=== PATIENT | male | born 1950 | race Caucasian/White ===

== ENCOUNTER 2018-08-08 15:04 | Inpatient (IN) | payer BC, OTHER ==
[~2018-08-08] VITALS: Ht 177.8 cm; Wt 105.4 kg
[2018-08-08 15:42] LABS: Mean Corpuscular Hgb Conc. 32.9 g/dL (32.0-36.0)
[2018-08-08] MEDS ORDERED: ASPirin 81 mg TAB PO ONE (15:45)
[2018-08-08 15:48] LABS: Basophils # (auto) 0.1 uL; Basophils % (auto) 1.7 % (0.0-2.0); Eosinophils # (auto) 0.3 uL; Eosinophils % (auto) 3.3 % (0.0-7.0); Hematocrit 49.8 % (41.0-53.0); Hemoglobin 16.4 g/dL (13.5-17.5); Lymphocytes # (auto) 0.5 uL; Lymphocytes % (auto) 6.9 % (10.0-50.0); Mean Corpuscular Hemoglobin 27.9 pg (28.0-32.0); Mean Corpuscular Volume 84.8 fL (80.0-100.0); Monocytes # (auto) 0.5 uL; Monocytes % (auto) 6.5 % (0.0-12.0); Neutrophils # (auto) 6.4 uL; Neutrophils % (auto) 81.6 % (37.0-80.0); Platelet Count (auto) 225 10^3/uL (140-450); Red Blood Cells 5.87 10^6/uL (4.5-5.90); Red Cell Distribution Width 16.9 % (11.8-14.3); White Blood Cell 7.9 10^3/uL (4.4-10.8)
[2018-08-08 16:16] LABS: Albumin 3.8 g/dL (3.4-5.0); Calcium 8.9 mg/dL (8.5-10.1); Potassium 3.9 mmol/L (3.5-5.1)
[2018-08-08 16:21] LABS: Bilirubin, Total 0.3 mg/dL (0.2-1.0); Total Protein 7.3 g/dL (6.4-8.2)
[2018-08-08] MEDS ORDERED: MORPHINE SULF INJ 2 MG/ML SYRINGE 1ML IV PRN ×2 (17:30)
[2018-08-08] MEDS ORDERED: ONDANSETRON HCL 4 MG/2 ML VIAL IV PRN (17:30)
[2018-08-08] MEDS ORDERED: ACETAMINOPHEN 500 MG TAB PO PRN (17:30)
[2018-08-08] MEDS ORDERED: DEXTROSE (50%) 50ML SYRG IV PRN (17:30)
[2018-08-08] MEDS ORDERED: NITROGLYCERIN 0.4 MG SL TAB SL PRN (17:30)
[2018-08-08] MEDS: glipiZIDE 5 MG TAB PO SCH (18:31)
[2018-08-08 19:35] VITALS: BP 179/95
[2018-08-08] MEDS ORDERED: BUSP10TA90 PO (21:58)
[2018-08-08] MEDS ORDERED: RIZA5TAB14 OR (21:58)
[2018-08-08] MEDS ORDERED: VENL37.588 PO (21:58)
[2018-08-08] MEDS ORDERED: HYDR-531 PO (21:58)
[2018-08-08] MEDS ORDERED: NITR0.4S29 SL (21:58)
[2018-08-08] MEDS ORDERED: GLIP-116 PO (21:58)
[2018-08-08] MEDS ORDERED: METF-370 PO (21:58)
[2018-08-08] MEDS ORDERED: GABA300C10 PO (21:58)
[2018-08-08] MEDS ORDERED: FENO1TAB42 PO (21:58)
[2018-08-08] MEDS ORDERED: ASP81EC PO (21:58)
[2018-08-08] MEDS ORDERED: TICA90TA PO (21:58)
[2018-08-08] MEDS ORDERED: BUTA1TAB PO (21:58)
[2018-08-08] MEDS ORDERED: CLON0.1T PO (21:58)
[2018-08-08] MEDS ORDERED: ATO40T PO (21:58)
[2018-08-08] MEDS ORDERED: HYDR-4296 PO (21:58)
[2018-08-08] MEDS ORDERED: OME20T PO (21:58)
[2018-08-08 22:00] VITALS: BP 157/86
[2018-08-08] MEDS: hydrALAZINE HCL 25 MG TAB PO SCH (22:36)
[2018-08-08] MEDS: GABAPENTIN 300 MG CAP PO SCH (22:37)
[2018-08-08] MEDS: ATORVASTATIN 20 MG TAB PO SCH (22:37)
[2018-08-08] MEDS: busPIRone HCL 10 MG TAB PO SCH (22:37)
[2018-08-08] MEDS: METOPROLOL TARTRATE 25 MG TAB PO SCH (22:37)
[2018-08-08] MEDS: InsuLIN REG 1unit/0.01ml Soln (100units/ml) SC SCH (22:38)
[2018-08-08] MEDS: OXcarbazepine 300 MG TAB PO SCH (22:38)
[2018-08-08] MEDS: ACCU-CHEK COMFORT CURVE STRIP VI SCH (22:38)
[2018-08-08] MEDS: TICAGRELOR 90 MG TAB PO SCH (22:54)
[2018-08-08] MEDS ORDERED: TEMAZEPAM 15 MG CAP PO ONE (23:00)
[2018-08-09] MEDS: HYDROcodone-ACET 5/325MG TAB PO PRN ×3 (00:08→22:25)
[2018-08-09] MEDS: LABETALOL HCL 5 MG/ML ML 20ML VIAL IV PRN (00:08)
[2018-08-09 04:54] VITALS: BP 158/68
[2018-08-09] MEDS: busPIRone HCL 10 MG TAB PO SCH ×3 (05:38→21:37)
[2018-08-09] MEDS: OXcarbazepine 300 MG TAB PO SCH ×3 (05:38→21:38)
[2018-08-09] MEDS: glipiZIDE 5 MG TAB PO SCH (05:38)
[2018-08-09] MEDS: GABAPENTIN 300 MG CAP PO SCH ×3 (05:38→21:38)
[2018-08-09] MEDS: ACCU-CHEK COMFORT CURVE STRIP VI SCH ×4 (05:39→21:39)
[2018-08-09] MEDS: InsuLIN REG 1unit/0.01ml Soln (100units/ml) SC SCH ×4 (05:39→21:39)
[2018-08-09] MEDS: amLODIPine BESYLATE 5 MG TAB PO SCH (07:13)
[2018-08-09 07:43] LABS: Basophils # (auto) 0.1 uL; Basophils % (auto) 0.8 % (0.0-2.0); Eosinophils # (auto) 0.3 uL; Eosinophils % (auto) 4.5 % (0.0-7.0); Hematocrit 47.8 % (41.0-53.0); Hemoglobin 15.6 g/dL (13.5-17.5); Lymphocytes # (auto) 1.2 uL; Lymphocytes % (auto) 16.2 % (10.0-50.0); Mean Corpuscular Hemoglobin 27.6 pg (28.0-32.0); Mean Corpuscular Hgb Conc. 32.7 g/dL (32.0-36.0); Mean Corpuscular Volume 84.4 fL (80.0-100.0); Monocytes # (auto) 0.6 uL; Monocytes % (auto) 8.8 % (0.0-12.0); Neutrophils % (auto) 69.7 % (37.0-80.0); Platelet Count (auto) 203 10^3/uL (140-450); Red Blood Cells 5.66 10^6/uL (4.5-5.90); Red Cell Distribution Width 16.5 % (11.8-14.3); White Blood Cell 7.2 10^3/uL (4.4-10.8)
[2018-08-09 07:44] LABS: INR 0.97 (0.9-1.15); Partial Thromboplastin Time 24.4 sec (23.64-32.05)
[2018-08-09 07:45] LABS: Calcium 9.2 mg/dL (8.5-10.1); Potassium 3.6 mmol/L (3.5-5.1)
[2018-08-09 07:48] LABS: BUN/Creatinine Ratio 16.1
[2018-08-09 07:55] LABS: Cholesterol 185 mg/dL (< 200); Triglycerides 425 mg/dL (< 150)
[2018-08-09 07:57] LABS: HDL Cholesterol 32 mg/dL (40-59)
[2018-08-09 09:00] VITALS: BP 167/76
[2018-08-09] MEDS: ASPirin-EC 81 mg tab PO SCH (09:58)
[2018-08-09] MEDS: FAMOTIDINE 20 MG TAB PO SCH (09:59)
[2018-08-09] MEDS ORDERED: VENLAFAXINE HCL 37.5mg XR cap PO SCH (10:00)
[2018-08-09] MEDS: METOPROLOL TARTRATE 25 MG TAB PO SCH ×2 (10:00→21:38)
[2018-08-09] MEDS: hydrALAZINE HCL 25 MG TAB PO SCH ×2 (10:00→21:37)
[2018-08-09] MEDS: INSULIN LANTUS (GLARGINE) 1 /0.01ml (100units/ml) SC SCH (10:01)
[2018-08-09] MEDS: TICAGRELOR 90 MG TAB PO SCH (10:13)
[2018-08-09] MEDS: LOSARTAN POTASSIUM 50 MG TAB PO SCH (12:28)
[2018-08-09] MEDS: HCTZ 25 MG TAB PO SCH (12:28)
[2018-08-09 12:53] VITALS: BP 177/91
[2018-08-09] MEDS ORDERED: SEMAGLUTIDE 0.25 MG SUBCUT SCH ×2 (14:45→15:00)
[2018-08-09 17:00] VITALS: BP 151/89
[2018-08-09] MEDS: metFORMIN HYDROCHLORIDE 500 MG TAB PO SCH (18:00)
[2018-08-09] MEDS: ATORVASTATIN 20 MG TAB PO SCH (21:37)
[2018-08-09] MEDS: ZOLPIDEM TARTRATE 5 MG TAB PO PRN (21:40)
[2018-08-09 22:00] VITALS: BP 167/82
[2018-08-10] VITALS (8 sets, daily range): BP systolic 143–167; BP diastolic 74–97
[2018-08-10] MEDS: busPIRone HCL 10 MG TAB PO SCH ×3 (05:40→21:11)
[2018-08-10] MEDS: GABAPENTIN 300 MG CAP PO SCH ×3 (05:41→21:12)
[2018-08-10] MEDS: OXcarbazepine 300 MG TAB PO SCH ×3 (05:41→21:12)
[2018-08-10] MEDS: ACCU-CHEK COMFORT CURVE STRIP VI SCH ×4 (06:07→21:14)
[2018-08-10] MEDS: InsuLIN REG 1unit/0.01ml Soln (100units/ml) SC SCH ×4 (06:07→21:13)
[2018-08-10 07:00] LABS: BUN/Creatinine Ratio 18.9; Calcium 9.3 mg/dL (8.5-10.1); Potassium 3.7 mmol/L (3.5-5.1)
[2018-08-10] MEDS: PRASUGREL HCL 10 MG TAB PO SCH (08:19)
[2018-08-10] MEDS: metFORMIN HYDROCHLORIDE 500 MG TAB PO SCH ×2 (08:19→18:06)
[2018-08-10] MEDS: ASPirin-EC 81 mg tab PO SCH (08:19)
[2018-08-10] MEDS: amLODIPine BESYLATE 5 MG TAB PO SCH (08:20)
[2018-08-10] MEDS: hydrALAZINE HCL 25 MG TAB PO SCH ×2 (08:20→21:10)
[2018-08-10] MEDS: FAMOTIDINE 20 MG TAB PO SCH (08:21)
[2018-08-10] MEDS: LOSARTAN POTASSIUM 50 MG TAB PO SCH (08:21)
[2018-08-10] MEDS: HCTZ 25 MG TAB PO SCH (08:22)
[2018-08-10] MEDS ORDERED: ADENOSINE 89 MG in GIVE UN-DILUTED 0 ML IV STA (08:36)
[2018-08-10] MEDS: FENOFIBRATE PO SCH (10:00)
[2018-08-10] MEDS: METOPROLOL TARTRATE 25 MG TAB PO SCH ×2 (10:00→21:12)
[2018-08-10] MEDS ORDERED: FENOFIBRATE PO SCH (10:00)
[2018-08-10] MEDS: JARDIANCE 10 MG PO SCH (10:00)
[2018-08-10] MEDS: INSULIN LANTUS (GLARGINE) 1 /0.01ml (100units/ml) SC SCH (10:59)
[2018-08-10] MEDS: LABETALOL HCL 5 MG/ML ML 20ML VIAL IV PRN (11:37)
[2018-08-10] MEDS ORDERED: PRAS10TA6 PO (11:47)
[2018-08-10] MEDS ORDERED: MET25T PO (11:47)
[2018-08-10] MEDS ORDERED: HYDR-4296 PO (11:47)
[2018-08-10] MEDS ORDERED: HCTZ25T PO (11:47)
[2018-08-10] MEDS ORDERED: LOSA-46 PO (11:47)
[2018-08-10] MEDS ORDERED: HCTZ 25 MG TAB PO ONE (12:00)
[2018-08-10] MEDS ORDERED: hydrALAZINE HCL 20 MG/ML VL IV PRN (13:15)
[2018-08-10] MEDS: HYDROcodone-ACET 5/325MG TAB PO PRN ×2 (19:48→23:53)
[2018-08-10] MEDS: ATORVASTATIN 20 MG TAB PO SCH (21:11)
[2018-08-10] MEDS: ZOLPIDEM TARTRATE 5 MG TAB PO PRN (21:18)
[2018-08-10] MEDS ORDERED: LOSARTAN POTASSIUM 50 MG TAB PO SCH (22:00)
[2018-08-11 05:29] VITALS: BP 156/72
[2018-08-11] MEDS: busPIRone HCL 10 MG TAB PO SCH (05:39)
[2018-08-11] MEDS: GABAPENTIN 300 MG CAP PO SCH (05:40)
[2018-08-11] MEDS: OXcarbazepine 300 MG TAB PO SCH (05:40)
[2018-08-11] MEDS: InsuLIN REG 1unit/0.01ml Soln (100units/ml) SC SCH (06:08)
[2018-08-11] MEDS: ACCU-CHEK COMFORT CURVE STRIP VI SCH (06:09)
[2018-08-11 06:48] LABS: Anion Gap 11 (5-15); Blood Urea Nitrogen 31 mg/dL (7-18); Carbon Dioxide 23 mmol/L (21-32); Chloride 103 mmol/L (98-107); Glucose 228 mg/dL (74-106); Magnesium 1.9 mg/dL (1.6-2.6); Potassium 3.9 mmol/L (3.5-5.1); Sodium 137 mmol/L (136-145)
[2018-08-11 06:51] LABS: BUN/Creatinine Ratio 22.3; GFR African American 66 mL/min; GFR Non-African American 55 mL/min
[2018-08-11] MEDS ORDERED: LEVOTHYROXINE SODIUM 25 MCG TAB PO SCH (07:00)
[2018-08-11] MEDS: metFORMIN HYDROCHLORIDE 500 MG TAB PO SCH (08:37)
[2018-08-11 09:00] VITALS: BP 164/81
[2018-08-11] MEDS: FAMOTIDINE 20 MG TAB PO SCH (09:47)
[2018-08-11] MEDS: PRASUGREL HCL 10 MG TAB PO SCH (09:47)
[2018-08-11] MEDS: hydrALAZINE HCL 25 MG TAB PO SCH (09:48)
[2018-08-11] MEDS: ASPirin-EC 81 mg tab PO SCH (09:48)
[2018-08-11] MEDS: METOPROLOL TARTRATE 25 MG TAB PO SCH (09:49)
[2018-08-11] MEDS: INSULIN LANTUS (GLARGINE) 1 /0.01ml (100units/ml) SC SCH (09:55)
[2018-08-11] MEDS: JARDIANCE 10 MG PO SCH (09:57)
[2018-08-11] MEDS: FENOFIBRATE PO SCH (09:57)
[2018-08-11] MEDS ORDERED: HCTZ 25 MG TAB PO SCH (10:00)
[2018-08-11 11:12] VITALS: BP 142/73
[2018-08-11 13:00] VITALS: BP 158/77
== END 2018-08-11 12:50 | disposition home or self-care (01) | DRG 291 ==
LOC: EDBD 15:04 → ER 15:13 → TELE 15:14 → TELE-CENTR 19:35
PROVIDERS: ADMIT Nurse Practitioner Acute Care; ATTEND Internal Medicine
DX: I13.0 Hypertensive heart and chronic kidney disease with heart failure and stage 1 through stage 4 chronic kidney disease, or unspecified chronic kidney disease (principal); I50.43 Acute on chronic combined systolic (congestive) and diastolic (congestive) heart failure; N17.0 Acute kidney failure with tubular necrosis; E11.21 Type 2 diabetes mellitus with diabetic nephropathy; E11.22 Type 2 diabetes mellitus with diabetic chronic kidney disease; E66.9 Obesity, unspecified; Z68.33 Body mass index [BMI] 33.0-33.9, adult; Z88.2 Allergy status to sulfonamides; E78.5 Hyperlipidemia, unspecified; E88.81 Metabolic syndrome and other insulin resistance; F32.9 Major depressive disorder, single episode, unspecified; F41.9 Anxiety disorder, unspecified; G47.33 Obstructive sleep apnea (adult) (pediatric); G89.4 Chronic pain syndrome; E11.42 Type 2 diabetes mellitus with diabetic polyneuropathy; N18.3 Chronic kidney disease, stage 3 (moderate); I25.10 Atherosclerotic heart disease of native coronary artery without angina pectoris; Z79.4 Long term (current) use of insulin; Z95.5 Presence of coronary angioplasty implant and graft
CPT/HCPCS: 36415; 71045; 80048; 80053; 80061; 82010; 82962; 83036; 83735; 83880; 84443; 84484; 85025; 85610; 85730; 86141; 87081; 93005; 93017; 93306; 94660; 94761; G0378; J0153; J1815

== ENCOUNTER 2018-11-23 09:44 | Inpatient (IN) | payer BC ==
[~2018-11-23] VITALS: Ht 182.9 cm; Wt 112.0 kg
[2018-11-23] VITALS (23 sets, daily range): BP systolic 114–179; BP diastolic 68–99
[~2018-11-23 09:44] MED LIST: ASP81EC PO; ATO40T PO; BUSP10TA90 PO; BUTA1TAB PO; CLON0.1T PO; FENO1TAB42 PO; GABA300C10 PO; GLIP10TA9 PO; HCTZ25T PO; HYDR-4296 PO; HYDR-531 PO; MET25T PO; METF-370 PO; NITR0.4S29 SL; OME20T PO; PRAS10TA6 PO; RIZA5TAB14 OR; VENL37.588 PO
[2018-11-23] MEDS ORDERED: DOPamine 1600MCG/ML D5W 250 ML IV ONE (09:54)
[2018-11-23] MEDS: DOPamine 1600MCG/ML D5W 250 ML IV SCH ×2 (10:02→21:41)
[2018-11-23 10:19] LABS: Basophils # (auto) 0.1 uL; Basophils % (auto) 0.8 % (0.0-2.0); Eosinophils # (auto) 0.2 uL; Eosinophils % (auto) 1.7 % (0.0-7.0); Hematocrit 44.1 % (41.0-53.0); Hemoglobin 14.7 g/dL (13.5-17.5); Lymphocytes # (auto) 1.3 uL; Lymphocytes % (auto) 12.3 % (10.0-50.0); Mean Corpuscular Hemoglobin 29.9 pg (28.0-32.0); Mean Corpuscular Hgb Conc. 33.3 g/dL (32.0-36.0); Mean Corpuscular Volume 89.8 fL (80.0-100.0); Monocytes # (auto) 0.7 uL; Monocytes % (auto) 7.1 % (0.0-12.0); Neutrophils # (auto) 8.2 uL; Neutrophils % (auto) 78.1 % (37.0-80.0); Nucleated Red Blood Cells % 0.1 %; Platelet Count (auto) 247 10^3/uL (140-450); Red Blood Cells 4.92 10^6/uL (4.5-5.90); Red Cell Distribution Width 16.9 % (11.8-14.3); White Blood Cell 10.5 10^3/uL (4.4-10.8)
[2018-11-23 10:34] LABS: Albumin 3.3 g/dL (3.4-5.0); Calcium 7.9 mg/dL (8.5-10.1); Potassium 4.6 mmol/L (3.5-5.1)
[2018-11-23 10:37] LABS: INR 1.01 (0.9-1.15); Partial Thromboplastin Time 25.8 sec (23.64-32.05)
[2018-11-23 10:39] LABS: Bilirubin, Total 0.4 mg/dL (0.2-1.0); Total Protein 6.3 g/dL (6.4-8.2)
[2018-11-23] MEDS ORDERED: FUROSEMIDE 40 MG/4 ML VIAL IV ONE (10:45)
[2018-11-23] MEDS ORDERED: FUROSEMIDE 40 MG/4 ML VIAL ONE (10:47)
[2018-11-23] MEDS ORDERED: ASPirin 81 mg TAB PO ONE (11:00)
[2018-11-23] MEDS ORDERED: PIPERACILLIN-TAZOB 3.375GM 100 ML IV ONE (11:00)
[2018-11-23] MEDS ORDERED: ENOXAPARIN SOD 150 MG/1 ML SYRINGE SC ONE (11:00)
[2018-11-23] MEDS ORDERED: NITROGLYCERIN 0.4 MG SL TAB SL PRN (13:30)
[2018-11-23] MEDS ORDERED: MORPHINE SULF INJ 2 MG/ML SYRINGE 1ML IV PRN (13:30)
[2018-11-23] MEDS ORDERED: GABAPENTIN 300 MG CAP PO SCH (14:00)
[2018-11-23] MEDS: busPIRone HCL 10 MG TAB PO SCH ×2 (14:09→22:04)
[2018-11-23] MEDS: GABAPENTIN 300 MG CAP PO SCH ×2 (14:35→22:03)
--- NOTE | 2018-11-23 16:15 | NUR ---
Pt being admitted to ICU JEAN-CLAUDEDARYL admitted to ICU via gurney on electronic device monitor, and portable 02. Patient transfered to bed, connected to ICU monitoring and oxygen, and weighed by bedscale. Patient oriented to HUA EVANS RN primary RN, unit, room, bed, and unit policies regarding patient care and visiting hours. All questions and concerns addressed, patient verbalized understanding.
[2018-11-23] MEDS: ACCU-CHEK COMFORT CURVE STRIP VI SCH ×2 (17:00→22:14)
[2018-11-23] MEDS ORDERED: DEXTROSE (50%) 50ML SYRG IV PRN (17:00)
[2018-11-23] MEDS: InsuLIN REG 1unit/0.01ml Soln (100units/ml) SC SCH ×2 (17:00→22:14)
[2018-11-23] MEDS ORDERED: cloNIDine HCL 0.1 MG TAB PO ONE (18:45)
--- NOTE | 2018-11-23 19:50 | NUR ---
OPEN NOTES Assumed care of patient Patient is awake and alert. Able to move all limbs. Turns and moves up in bed without any assistance. On Nasal cannula 4L/min, Saturation 97%. HR 60-64/min,ECG SR. BP slightly elevated 150-160 mmHg. As per patient his BP goes to as high as SBP 180 mmHg at home. According to patient he ate everything in his dinner tray tonight. Informed of fluid restriction 1500mls for 24hours. Last BM yesterday as per patient. He normally takes stool softener at home. Mckeon catheter draining to yellowish urine slightly cloudy IV lines : saline locked Full assessment done -refer interventions
--- NOTE | 2018-11-23 20:00 | NUR ---
patient requesting for CPAP, he said he can't sleep without it and a sleeping pill tonight because he hasn't slept good for today will inform Hospitalist
--- NOTE | 2018-11-23 20:59 | NUR ---
HOSPITALIST TALKED TO [facility]. PATIENT IS ON CPAP AT HOME BUT CAN'T REMEMBER THE SETTINGS 2. TAKES SLEEPING PILL AT HOME - LORAZEPAM,BUT DID TAKE RESTORIL BEFORE AND DID HELP HIM ORDERS RECEIVED: 1. CPAP AT NIGHT, RT TO TITRATE 2. RESTORIL 15MG Q HS PRN
[2018-11-23] MEDS ORDERED: OXcarbazepine 300 MG TAB PO SCH (22:00)
[2018-11-23] MEDS: ATORVASTATIN 20 MG TAB PO SCH (22:02)
[2018-11-23] MEDS: OXcarbazepine 300 MG TAB PO SCH (22:04)
[2018-11-23] MEDS: CARVEDILOL 3.125 MG TAB PO SCH (22:06)
[2018-11-23] MEDS: TEMAZEPAM 15 MG CAP PO PRN (22:20)
--- NOTE | 2018-11-23 22:22 | NUR ---
TROPONIN PAGED DR. KENNETH BILLY TROPONIN TRENDING UP LATEST RESULT 0.085 Addendum: 11/23/18 at 2223 by Patricia Lombardo RN NO ORDERS RECEIVED
--- NOTE | 2018-11-23 23:29 | NUR ---
DESATURATION PATIENT IS NOW ON CPAP BUT SATURATIONS 85-90% RT WAS PAGED AND WAS INFORMED. SHE WILL COME TO SEE PATIENT
[2018-11-24] VITALS (43 sets, daily range): BP systolic 116–220; BP diastolic 49–111
--- NOTE | 2018-11-24 01:24 | NUR ---
DESATURATION Patient's SPO2 80% on CPAP 9 cm H20 with 2L/min O2 Increased O2 to 4L/min - still low Increased to 5L/min - SPO2 94% will continue to monitor
--- NOTE | 2018-11-24 04:00 | NUR ---
ROUNDS Patient resting, eyes closed. Looked comfortable with CPAP on.Saturating 95% VS stable. will continue to monitor
[2018-11-24 04:54] LABS: Basophils # (auto) 0.1 uL; Basophils % (auto) 0.8 % (0.0-2.0); Eosinophils # (auto) 0.2 uL; Hematocrit 42.4 % (41.0-53.0); Hemoglobin 14.4 g/dL (13.5-17.5); Lymphocytes # (auto) 1.2 uL; Lymphocytes % (auto) 14.8 % (10.0-50.0); Mean Corpuscular Hemoglobin 29.9 pg (28.0-32.0); Mean Corpuscular Volume 88.1 fL (80.0-100.0); Monocytes # (auto) 0.7 uL; Monocytes % (auto) 8.3 % (0.0-12.0); Neutrophils # (auto) 5.9 uL; Neutrophils % (auto) 73.1 % (37.0-80.0); Platelet Count (auto) 210 10^3/uL (140-450); Red Blood Cells 4.81 10^6/uL (4.5-5.90); Red Cell Distribution Width 16.5 % (11.8-14.3); White Blood Cell 8.1 10^3/uL (4.4-10.8)
[2018-11-24 05:09] LABS: Albumin 3.3 g/dL (3.4-5.0); Calcium 8.4 mg/dL (8.5-10.1); Potassium 4.4 mmol/L (3.5-5.1)
[2018-11-24 05:13] LABS: BUN/Creatinine Ratio 14.6; Bilirubin, Total 0.5 mg/dL (0.2-1.0); Total Protein 6.5 g/dL (6.4-8.2)
--- NOTE | 2018-11-24 06:20 | NUR ---
blood sugar low blood sugar = 56 will give apple juice and recheck after 1 hour
[2018-11-24] MEDS: ACCU-CHEK COMFORT CURVE STRIP VI SCH ×4 (06:26→22:20)
[2018-11-24] MEDS: InsuLIN REG 1unit/0.01ml Soln (100units/ml) SC SCH ×4 (06:26→22:27)
[2018-11-24] MEDS: busPIRone HCL 10 MG TAB PO SCH ×3 (06:29→22:17)
[2018-11-24] MEDS: OXcarbazepine 300 MG TAB PO SCH ×3 (06:29→22:16)
[2018-11-24] MEDS: GABAPENTIN 300 MG CAP PO SCH ×3 (06:29→22:15)
--- NOTE | 2018-11-24 06:30 | NUR ---
HYGIENE PATIENT BRUSHED HIS TEETH REFUSED SPONGE BATH FIRST
--- NOTE | 2018-11-24 07:44 | NUR ---
BLOOD SUGAR RECHECKED BLOOD SUGAR RECHECKED = 83 INFORMED DAY SHIFT RN
--- NOTE | 2018-11-24 08:35 | NUR ---
ECHO BEING DONE AT BEDSIDE.
[2018-11-24] MEDS: DOPamine 1600MCG/ML D5W 250 ML IV SCH (09:29)
[2018-11-24] MEDS: FENOFIBRATE 145MG TAB PO SCH (09:44)
[2018-11-24] MEDS: ASPirin-EC 81 mg tab PO SCH (09:44)
[2018-11-24] MEDS: PRASUGREL HCL 10 MG TAB PO SCH (09:44)
[2018-11-24] MEDS: FUROSEMIDE 40 MG/4 ML VIAL IV SCH (09:44)
[2018-11-24] MEDS: CARVEDILOL 3.125 MG TAB PO SCH (09:45)
[2018-11-24] MEDS ORDERED: VENLAFAXINE HCL 37.5mg XR cap PO SCH (10:00)
[2018-11-24] MEDS ORDERED: cloNIDine HCL 0.1 MG TAB PO PRN ×2 (11:00→18:00)
[2018-11-24] MEDS ORDERED: hydrALAZINE HCL 25 MG TAB PO ONE ×2 (11:00→17:00)
--- NOTE | 2018-11-24 13:00 | NUR ---
DR. JACKSON HERE TO SEE PATIENT. SEE MD NOTES AND EMR FOR ANY NEW ORDERS.
--- NOTE | 2018-11-24 13:21 | NUR ---
DR. SHEIKH HERE TO SEE PATIENT. SEE MD NOTES AND EMR FOR ANY NEW ORDERS.
--- NOTE | 2018-11-24 14:03 | NUR ---
Assessment Pt is a 68 year old alert and oriented male. Prior to hospitalization, pt lives with , is ambulatory and independent with ADL's. Pt's Vanessa is his emergency contact at [phone] and helps to cook and clean. Pt is currently employed and states that he is moving to [place] on Monday 11/27. Pt admitted with sever shortness of breath and weakness, being fluid overloaded. Pt aware of health diagnosis and states that he is being watchful of diet and medication. Pt states that he uses anti-depressants and it helps stabilize his mood. No SI/HI. Pt stated that he is not in need of any HH services at this time. Pt asked to bring copy of his AD to hospital. Pt's will transport home upon d/c. Pt plans to d/c home upon medical clearance. No other needs or concerns expressed at this time. Addendum: 11/24/18 at 1409 by MINA LORD Amended: Links added.
--- NOTE | 2018-11-24 16:00 | NUR ---
PATIENTS BLOOD PRESSURE 200/100, ORAL CLONIDINE GIVEN ORDERED.
--- NOTE | 2018-11-24 16:38 | NUR ---
DR. JACKSON CALLED TO REPORT INCREASED BLOOD PRESSURE. AWAITING CALL BACK.
[2018-11-24] MEDS ORDERED: LABETALOL HCL 5 MG/ML ML 20ML VIAL IV PRN (16:45)
[2018-11-24] MEDS ORDERED: ISOSORBIDE DINITRATE 10 MG TAB PO ONE (16:45)
--- NOTE | 2018-11-24 17:55 | NUR ---
DR. COOPER HERE TO SEE PATIENT. SEE MD NOTES AND EMR FOR NEW ORDERS.
--- NOTE | 2018-11-24 20:00 | NUR ---
Opening Shift Note Assumed care of patient, awake and alert. No S/S of distress/SOB or pain. On room air now, saturations 94%. BP better. Full assessment done- refer interventions. Left eye still has some ecchymosis - patient hit his eye while brushing his teeth before admission. IV line - saline flushed. Instructed on POC and to call for assist PRN, will continue to monitor for changes Q1hr and PRN.
--- NOTE | 2018-11-24 20:30 | NUR ---
HYGIENE PATIENT ASSISTED TO CLEAN HIS UPPER BODY, GOWN CHANGED. NO NEW UNDERWEAR AVAILABLE. LINENS CHANGED.
--- NOTE | 2018-11-24 21:00 | NUR ---
ELIMINATION PATIENT HAD BM ON THE TOILET
[2018-11-24] MEDS: hydrALAZINE HCL 25 MG TAB PO SCH (22:00)
[2018-11-24] MEDS ORDERED: hydrALAZINE HCL 25 MG TAB PO SCH ×2 (22:00)
[2018-11-24] MEDS: ATORVASTATIN 20 MG TAB PO SCH (22:15)
[2018-11-24] MEDS: ISOSORBIDE MONONITRATE ER 60 MG TAB PO SCH (22:18)
[2018-11-24] MEDS: CARVEDILOL 12.5 MG TAB PO SCH (22:26)
[2018-11-24] MEDS: TEMAZEPAM 15 MG CAP PO PRN (22:28)
[2018-11-25] VITALS (24 sets, daily range): BP systolic 106–171; BP diastolic 47–85
--- NOTE | 2018-11-25 | NUR ---
BP MEDICATIONS BP 125 MMHG SYSTOLIC, HR 64/MIN CLONIDINE HELD,HYDRALAZINE GIVEN WILL CONTINUE TO MONITOR
[2018-11-25] MEDS: cloNIDine HCL 0.1 MG TAB PO SCH ×3 (00:01→22:00)
[2018-11-25] MEDS: hydrALAZINE HCL 25 MG TAB PO SCH ×4 (00:03→18:01)
[2018-11-25 04:23] LABS: Calcium 8.5 mg/dL (8.5-10.1); Potassium 3.6 mmol/L (3.5-5.1)
[2018-11-25 04:25] LABS: BUN/Creatinine Ratio 13.9
[2018-11-25] MEDS ORDERED: ISOSORBIDE DINITRATE 10 MG TAB PO SCH (06:00)
--- NOTE | 2018-11-25 06:15 | NUR ---
HYGIENE PATIENT BRUSHED HIS TEETH
[2018-11-25] MEDS: GABAPENTIN 300 MG CAP PO SCH ×3 (06:31→22:20)
[2018-11-25] MEDS: busPIRone HCL 10 MG TAB PO SCH ×3 (06:31→22:23)
[2018-11-25] MEDS: OXcarbazepine 300 MG TAB PO SCH ×3 (06:32→22:20)
[2018-11-25] MEDS: ACCU-CHEK COMFORT CURVE STRIP VI SCH ×4 (06:36→23:10)
[2018-11-25] MEDS: InsuLIN REG 1unit/0.01ml Soln (100units/ml) SC SCH ×4 (06:41→23:10)
--- NOTE | 2018-11-25 06:45 | NUR ---
HYDRALAZINE CALLED PHARMACY TO INFORM THERE IS NO HYDRALAZINE IN THE PYXIS. THE POCKET ONLY HAS LABETALOL ASKED THEM TO SUPPLY AND CHECK THE PYXIS MACHINE
--- NOTE | 2018-11-25 07:49 | NUR ---
PATIENT TO REMAIN NPO FOR KIDNEY ULTRASOUND
--- NOTE | 2018-11-25 09:47 | NUR ---
ULTRASOUND AT BEDSIDE
[2018-11-25] MEDS: FENOFIBRATE 145MG TAB PO SCH (10:00)
--- NOTE | 2018-11-25 10:01 | NUR ---
ULTRASOUND AT BEDSIDE
[2018-11-25] MEDS: FUROSEMIDE 40 MG/4 ML VIAL IV SCH (10:20)
[2018-11-25] MEDS: PRASUGREL HCL 10 MG TAB PO SCH (10:21)
[2018-11-25] MEDS: CARVEDILOL 12.5 MG TAB PO SCH ×2 (10:21→22:24)
[2018-11-25] MEDS: ISOSORBIDE MONONITRATE ER 60 MG TAB PO SCH ×2 (10:22→22:23)
[2018-11-25] MEDS: ASPirin-EC 81 mg tab PO SCH (10:22)
[2018-11-25] MEDS: ACETAMINOPHEN 500 MG TAB PO PRN ×2 (11:52→20:01)
--- NOTE | 2018-11-25 12:11 | NUR ---
REPORT GIVEN TO WILL RN TO ASSUME CARE
--- NOTE | 2018-11-25 12:30 | NUR ---
ICU patient trans to floor REPORT RECEIVED FROM ICU NURSE. DARYL BERMEO transferred to via WHEELCHAIR WITH TELE BOX. All personal belongings transferred with patient to receiving floor. Patient care transferred to [facility] NURSE.
[2018-11-25] MEDS ORDERED: ONDANSETRON HCL 4 MG/2 ML VIAL IV PRN (12:45)
--- NOTE | 2018-11-25 12:47 | NUR ---
PATIENT TRANSFERRED TO ROOM 284B VIA ACLS GUIDELINES WITH ALL BELONGINGS
--- NOTE | 2018-11-25 13:15 | NUR ---
Woodall catheter dc'd Order to discontinue woodall catheter. Woodall dc'd with clean technique following deflation of balloon. Patient tolerated well with no complaints of pain. Continue care.
--- NOTE | 2018-11-25 14:53 | NUR ---
NUTRITION ASSESSMENT NOTES Please refer to link notes of nutrition screen form filed under the intervention section of the plan of care for further details. Est. Needs: 2050 kcal to 2250 kcal (20-25 kcal/kgBW), 65 gms to 81 gms pro (0.8-1.0 gms/kgBW). Will continue to monitor pertinent labs and reassess nutrient need prn Thank you. Addendum: 11/25/18 at [address] Amended: Links added.
--- NOTE | 2018-11-25 19:15 | NUR ---
Opening Shift Note Assumed care of patient, awake and alert while sitting in his chair. No S/S of distress/SOB or pain. Instructed on POC and to call for assist PRN, will continue to monitor for changes Q1hr and PRN.
[2018-11-25] MEDS: TEMAZEPAM 15 MG CAP PO PRN (20:53)
--- NOTE | 2018-11-25 21:50 | NUR ---
RT NOTE PT PLACED ON HOSPITAL OWNED HOME CPAP UNIT WITH MEDIUM MASK. CPAP IS PLUGGED TO RED OUTLET. WATER LEVEL IS ADEQUATE. PLACED PT ON BEDSIDE POX PER PROTOCOL. POX PLUGGED TO RED OUTLET. PT REQUESTS THAT O2 TUBING BE REMOVED SINCE HE DOES NOT WEAR O2 AT HOME. PT MADE AWARE THAT IF HE IS GOING TO STAY LONGER THAT HIS HOME MASK CAN BE USED IF IT IS MORE COMFORTABLE. PT APPEARS COMFORTABLE AT THIS TIME. CONT ORDERED. POX 95% Addendum: 11/25/18 at 2204 by Mirlande Florentino RT Amended: Links added.
[2018-11-25] MEDS: ATORVASTATIN 20 MG TAB PO SCH (22:23)
--- NOTE | 2018-11-26 00:06 | NUR ---
RT NOTE ROUTINE CPAP CHECK DONE. PT ON HOSPITAL OWNED HOME CPAP UNIT WITH MEDIUM MASK. CPAP IS PLUGGED TO RED OUTLET. WATER LEVEL IS ADEQUATE. PLACED PT ON BEDSIDE POX PER PROTOCOL. POX PLUGGED TO RED OUTLET. PT IS SLEEPING AND APPEARS COMFORTABLE AT THIS TIME. CONT ORDERED. POX 93% Addendum: 11/26/18 at 0015 by Mirlande Florentino RT Amended: Links added.
[2018-11-26] MEDS: hydrALAZINE HCL 25 MG TAB PO SCH ×3 (00:15→11:58)
--- NOTE | 2018-11-26 02:05 | NUR ---
RT NOTE ROUTINE CPAP CHECK DONE. PT ON HOSPITAL OWNED HOME CPAP UNIT WITH MEDIUM MASK. CPAP IS PLUGGED TO RED OUTLET. WATER LEVEL IS ADEQUATE. PLACED PT ON BEDSIDE POX PER PROTOCOL. POX PLUGGED TO RED OUTLET. PT IS SLEEPING AND APPEARS COMFORTABLE AT THIS TIME. CONT ORDERED. POX 91% Addendum: 11/26/18 at 0210 by Mirlande Florentino RT Amended: Links added.
--- NOTE | 2018-11-26 04:11 | NUR ---
RT NOTE ROUTINE CPAP CHECK DONE. PT ON HOSPITAL OWNED HOME CPAP UNIT WITH MEDIUM MASK. CPAP IS PLUGGED TO RED OUTLET. WATER LEVEL IS ADEQUATE. PLACED PT ON BEDSIDE POX PER PROTOCOL. POX PLUGGED TO RED OUTLET. PT IS SLEEPING AND APPEARS COMFORTABLE AT THIS TIME. CONT ORDERED. POX 94% Addendum: 11/26/18 at 0415 by Mirlande Florentino RT Amended: Links added.
[2018-11-26 05:00] VITALS: BP 120/51
[2018-11-26 05:57] LABS: Potassium 3.7 mmol/L (3.5-5.1)
[2018-11-26 05:59] LABS: BUN/Creatinine Ratio 15.6
[2018-11-26] MEDS: GABAPENTIN 300 MG CAP PO SCH (06:11)
[2018-11-26] MEDS: OXcarbazepine 300 MG TAB PO SCH (06:11)
[2018-11-26] MEDS: busPIRone HCL 10 MG TAB PO SCH (06:11)
[2018-11-26] MEDS: ACCU-CHEK COMFORT CURVE STRIP VI SCH ×2 (06:58→11:57)
[2018-11-26] MEDS: InsuLIN REG 1unit/0.01ml Soln (100units/ml) SC SCH ×2 (06:58→11:57)
--- NOTE | 2018-11-26 07:20 | NUR ---
Respiratory note: WENT IN TO TAKE PATIENT OFF CPAP, PT HAD ALREADY TAKEN HIMSELF OFF AT 6AM. SPO2 94% ON ROOM AIR, HR 61, RR 16.
--- NOTE | 2018-11-26 07:30 | NUR ---
Opening Shift Note RECEIVED REPORT FROM NOC RN. Assumed care of patient, awake and alert. No S/S of distress/SOB or pain. BED IN LOWEST, LOCKED POSITION WITH SIDERAILS UP x2 AND CALL LIGHT WITHIN REACH. Instructed on POC and to call for assist PRN, will continue to monitor for changes Q1hr and PRN.
[2018-11-26 09:28] VITALS: BP 153/76
[2018-11-26] MEDS: FENOFIBRATE 145MG TAB PO SCH (10:00)
[2018-11-26] MEDS: FUROSEMIDE 40 MG/4 ML VIAL IV SCH (10:24)
[2018-11-26] MEDS: ASPirin-EC 81 mg tab PO SCH (10:25)
[2018-11-26] MEDS: PRASUGREL HCL 10 MG TAB PO SCH (10:25)
[2018-11-26] MEDS: cloNIDine HCL 0.1 MG TAB PO SCH (10:25)
[2018-11-26] MEDS: CARVEDILOL 12.5 MG TAB PO SCH (10:25)
[2018-11-26] MEDS: ISOSORBIDE MONONITRATE ER 60 MG TAB PO SCH (10:26)
[2018-11-26] MEDS ORDERED: POTASSIUM CHL 20 Meq TABLET PO ONE (10:30)
[2018-11-26] MEDS ORDERED: FUROSEMIDE 40 MG/4 ML VIAL IV SCH (12:15)
[2018-11-26 13:00] VITALS: BP 109/64
[2018-11-26 13:18] VITALS: BP 153/76
[2018-11-26 17:00] VITALS: BP 139/69
== END 2018-11-26 15:01 | disposition home or self-care (01) | DRG 291 ==
LOC: EDBD 09:44 → ER 09:44 → TELE 09:45 → ICU WEST 16:05 → TELE-WESTW 11-25 12:33
PROVIDERS: ADMIT Nurse Practitioner Acute Care; ATTEND Internal Medicine
PROC: 5A09357 Assistance with Respiratory Ventilation, Less than 24 Consecutive Hours, Continuous Positive Airway Pressure (ICD-10-PCS; principal; 2018-11-24)
PROC: 5A09357 Assistance with Respiratory Ventilation, Less than 24 Consecutive Hours, Continuous Positive Airway Pressure (ICD-10-PCS; 2018-11-25)
PROC: 5A09357 Assistance with Respiratory Ventilation, Less than 24 Consecutive Hours, Continuous Positive Airway Pressure (ICD-10-PCS; 2018-11-26)
DX: I13.0 Hypertensive heart and chronic kidney disease with heart failure and stage 1 through stage 4 chronic kidney disease, or unspecified chronic kidney disease (principal); I50.43 Acute on chronic combined systolic (congestive) and diastolic (congestive) heart failure; R57.0 Cardiogenic shock; J18.9 Pneumonia, unspecified organism; N17.0 Acute kidney failure with tubular necrosis; E11.22 Type 2 diabetes mellitus with diabetic chronic kidney disease; E66.9 Obesity, unspecified; E78.00 Pure hypercholesterolemia, unspecified; E78.5 Hyperlipidemia, unspecified; F32.9 Major depressive disorder, single episode, unspecified; G47.30 Sleep apnea, unspecified; F41.9 Anxiety disorder, unspecified; R00.1 Bradycardia, unspecified; I25.10 Atherosclerotic heart disease of native coronary artery without angina pectoris; N18.3 Chronic kidney disease, stage 3 (moderate); Z79.02 Long term (current) use of antithrombotics/antiplatelets; Z79.1 Long term (current) use of non-steroidal anti-inflammatories (NSAID); Z79.84 Long term (current) use of oral hypoglycemic drugs; Z79.899 Other long term (current) drug therapy; Z82.49 Family history of ischemic heart disease and other diseases of the circulatory system; Z90.49 Acquired absence of other specified parts of digestive tract; Z83.3 Family history of diabetes mellitus; Z95.5 Presence of coronary angioplasty implant and graft; Z88.2 Allergy status to sulfonamides
CPT/HCPCS: 36415; 51702; 71045; 76775; 80048; 80053; 80061; 82962; 83036; 83605; 83735; 83880; 84484; 85025; 85610; 85730; 86141; 87040; 87081; 93005; 93306; 94660; 94761; 96365; 96372; 96375; 99291; G0378; J1815; J2543

== ENCOUNTER 2018-12-30 15:55 | Emergency (ER) | payer BC ==
[~2018-12-30] VITALS: Ht 177.8 cm; Wt 108.9 kg
[~2018-12-30 15:55] MED LIST changes: -BUTA1TAB PO; -VENL37.588 PO
[2018-12-30 18:39] VITALS: BP 183/83
== END 2018-12-30 18:59 | disposition home or self-care (01) ==
LOC: ER 15:55
DX: I16.0 Hypertensive urgency (principal); I11.0 Hypertensive heart disease with heart failure; I50.9 Heart failure, unspecified; E11.9 Type 2 diabetes mellitus without complications; E78.5 Hyperlipidemia, unspecified; I25.2 Old myocardial infarction; Z88.2 Allergy status to sulfonamides; Z79.899 Other long term (current) drug therapy
CPT/HCPCS: 93005